=== PATIENT | male | born 1990 | race African-American/Black ===

== ENCOUNTER 2023-12-24 07:39 | Emergency (ER) | payer OTHER, SELFPAY ==
--- NOTE | ~2023-12-24 | US_ITS ---
EXAMINATION: US venous doppler LE RT DATE: 12/24/2023 INDICATION: Right lower limb pain and swelling TECHNIQUE: Rodriguez scale images without and with compression and Doppler images of the right lower extre mity veins were obtained. COMPARISON: None FINDINGS: The right common femoral vein, profunda femoral vein, femoral vein, popliteal vein, peronea l trunk, posterior tibial veins, and greater saphenous vein are patent. IMPRESSION: 1. Patent right lower extremity veins. No evidence of deep venous thrombosis. Reviewed, dictated and finalized at location [facility]. [facility] [employer]
[2023-12-24 07:50] VITALS: BP 140/110; PULSE 90; RESP 16; TEMP 36.8; O2SAT 98
--- NOTE | 2023-12-24 08:14 | ED.LOWEXIN ---
HPI - Extremity Injury (Lower) General Chief Complaint: Extremity Injury, Lower Stated Complaint: calf pain Time Seen by Provider: 12/24/23 07:58 History of Present Illness HPI Narrative: Patient is a healthy 33-year-old male here with right calf pain. He states that around 5:00 a.m. yesterday evening he was playing basketball at the gym. He states that he was pivoting to guard someone and felt a popping sensation in his calf and immediate pain. He notes that the pain is located up with in his calf muscle and not within the ankle or the knee. He has not taken any medications for it, not iced it. He denies any prior injuries to this calf or ankle or knee in the past. He does not take any blood thinners. Related Data Allergies Allergy/AdvReac Type Severity Reaction Status Date / Time shellfish derived Allergy Hives Verified 12/24/23 08:02 Review of Systems Review of Systems: All systems reviewed & are unremarkable except as noted in HPI and below Exam Narrative: GENERAL: Well-appearing, well-nourished, and in no acute distress. HEAD: Normocephalic, atraumatic. EYES: PERRLA and EOMI. ENT: Nares clear. Mucous membranes moist. NECK: Supple. CHEST: Clear to auscultation. No respiratory distress. HEART: Regular rate and rhythm. Normal peripheral pulses. ABDOMEN: Soft, nontender, nondistended. EXTREMITIES: Normal range of motion. Right knee with full range of motion, no bruising, no tenderness, no obvious effusion appreciated. Ankle nontender on the right with full range of motion, no tenderness over the base of the Achilles. He has isolated tenderness within the calf on the right side with increased swelling. No overlying bruising, skin changes. Strong DP pulse in the right foot. SKIN: Warm, dry, no rash. NEURO: No focal deficits. Alert and oriented x3. PSYCH: Normal mood and affect. Course Course Emergency Course: Chart review performed. Patient here with right calf pain which occurred while playing basketball, triage vitals show hypertension, otherwise within normal limits. No prior visits in our system. Patient seen evaluated, nontoxic appearing. Differentials include muscle strain, muscle tear, less likely DVT. No bony tenderness appreciated, unlikely to be fracture, do not feel that x-rays are indicated at this time. Will do lower extremity Doppler, ibuprofen, anticipate discharge. Doppler negative. Patient advised ice, rest, elevation, Tylenol and ibuprofen for pain. The results of pertinent diagnostic studies and exam findings were discussed. The patient?s provisional diagnosis and plan of care were discussed with the patient and present family. The patient and/or present family expressed understanding of the diagnosis and plan. The nurse was instructed to provide written instructions and appropriate follow-up information. The patient understands their need and responsibility to obtain additional follow-up as instructed. The risks of medications administered and prescribed were discussed with the patient and family present. Vital Signs Vital signs: Vital Signs Temperature 98.2 F 12/24/23 07:50 Pulse Rate 90 12/24/23 07:50 Respiratory Rate 16 12/24/23 07:50 Blood Pressure 140/110 H 12/24/23 07:50 Pulse Oximetry 98 12/24/23 07:50 Oxygen Delivery Room Air 12/24/23 07:50 Temperature 98.2 F 12/24/23 07:50 Pulse Rate 90 12/24/23 07:50 Respiratory Rate 16 12/24/23 07:50 Blood Pressure 140/110 H 12/24/23 07:50 Pulse Oximetry 98 12/24/23 07:50 Oxygen Delivery Room Air 12/24/23 07:50 MDM - Extremity Injury (Lower) Imaging Data Radiologist's impression: ITS Impressions Venous Doppler Study 12/24/23 09:13 IMPRESSION: 1. Patent right lower extremity veins. No evidence of deep venous thrombosis. Discharge Plan Discharge Clinical Impression: Strain of right calf muscle Patient Disposition: Home, Self-Care Condition: Stable
[2023-12-24] MEDS: IBUPROFEN 600 MG TABLET PO (09:06)
== END 2023-12-24 10:29 | disposition home or self-care (01) ==
PROVIDERS: Emergency Provider Student in an Organized Health Care Education/Training Program
DX: S86.111A Strain of other muscle(s) and tendon(s) of posterior muscle group at lower leg level, right leg, initial encounter (principal); X50.0XXA Overexertion from strenuous movement or load, initial encounter
CPT/HCPCS: 93971; 99284; A9270